=== PATIENT | male | born 2005 ===

== ENCOUNTER 2025-01-16 19:17 | Emergency (ER) | payer OTHER ==
[~2025-01-16] VITALS: Ht 177.8 cm; Wt 74.8 kg
== END 2025-01-17 00:28 | disposition home or self-care (01) ==
LOC: ER 19:17
DX: S01.112A Laceration without foreign body of left eyelid and periocular area, initial encounter (principal); W50.0XXA Accidental hit or strike by another person, initial encounter; Y93.72 Activity, wrestling
CPT/HCPCS: 12013; 99282-25